=== PATIENT | female | born 1960 | race Two or more races ===

== ENCOUNTER 2024-08-30 14:25 | Emergency (ER) | payer MEDICAID, SELFPAY ==
[2024-08-30 14:26] VITALS: BMI 31.4
--- NOTE | 2024-08-30 15:00 | PD.EDBACK ---
ED Back Injury Pain RME/HPI General Chief Complaint: Back Pain/Injury Stated Complaint: LOWER BACK X3 DAYS Time Seen by Provider: 08/30/24 14:59 Arrival date/time: 08/30/24 14:25 RME / HPI RME / HPI Narrative: [email or web address]{vNSDO Related Data Allergies Allergy/AdvReac Type Severity Reaction Status Date / Time No Known Allergies Allergy Verified 08/30/24 14:26 Discharge Plan Patient/Caregiver Discharge Instructions Print Language: Libyan
[2024-08-30 15:01] VITALS: BP 172/82; PULSE 75; RESP 18; TEMP 37.2; O2SAT 95
--- NOTE | 2024-08-30 15:10 | XR_ITS ---
Examination: Lumbar spine 3 views TECHNIQUE: AP lateral, lateral lower lumbar spine 3 views Exam date and time: August 30, 2024 1541 hours INDICATIONS: Lower back pain beginning 3 days ago. FINDINGS: Moderate osteopenia Thoracolumbar dextroscoliosis 15 degrees Grade 1 anterolisthesis L4 on L5 No acute lumbar fracture Diffuse lumbar disc narrowing, advanced L5-S1 No spondylolisthesis IMPRESSION: Diffuse lumbar degenerative disc disease, advanced L5-S1
--- NOTE | 2024-08-30 15:10 | PD.EDBACK ---
ED Back Injury Pain RME/HPI General Chief Complaint: Back Pain/Injury Stated Complaint: LOWER BACK X3 DAYS Time Seen by Provider: 08/30/24 14:59 Source: patient Arrival date/time: 08/30/24 14:25 63-year-old female with no known medical history presents to the emergency room with a chief complaint of lower back pain x 3 days Mode of arrival: ambulatory Limitations: no limitations RME / HPI RME / HPI Narrative: [email or web address]{vNSDO Related Data Allergies Allergy/AdvReac Type Severity Reaction Status Date / Time No Known Allergies Allergy Verified 08/30/24 14:26 Review of Systems Review of Systems Systems Reviewed: All systems reviewed, normal except as documented Constitutional Constitutional: Reports system reviewed and no additional complaints, except as documented, Denies fatigue, Denies fever(s), Denies headache(s) and Denies weakness Eyes Eyes: Reports system reviewed and no additional complaints, except as documented, Denies blurry vision and Denies change in vision ENT Ears, Nose, Mouth, and Throat: Reports system reviewed and no additional complaints, except as documented, Denies otalgia, Denies headache(s), Denies nasal congestion, Denies throat swelling and Denies vertigo Cardiovascular Cardiovascular: Reports system reviewed and no additional complaints, except as documented, Denies chest pain, Denies dyspnea and Denies dyspnea on exertion Respiratory Respiratory: Reports system reviewed and no additional complaints, except as documented, Denies chest congestion, Denies cough, Denies dyspnea, Denies dyspnea on exertion and Denies wheezing Gastrointestinal Gastrointestinal: Reports system reviewed and no additional complaints, except as documented, Denies abdominal pain, Denies cramping, Denies nausea and Denies vomiting Genitourinary Genitourinary: Reports system reviewed and no additional complaints, except as documented Musculoskeletal Musculoskeletal: Reports system reviewed and no additional complaints, except as documented, Reports back pain and Reports radiating pain into limb Integumentary/Breasts Skin/Breast: Reports system reviewed and no additional complaints, except as documented and Denies wounds Neurologic Neurologic: Reports system reviewed and no additional complaints, except as documented, Denies confusion, Denies headache(s), Denies lack of coordination, Denies vertigo and Denies weakness Psychiatric Psychiatric: Reports system reviewed and no additional complaints, except as documented, Denies anxiety, Denies confusion, Denies depression, Denies paranoia, Denies suicidal ideation and Denies tactile hallucinations Endocrine Endocrine: Reports system reviewed and no additional complaints, except as documented and Denies fatigue Hematologic/Lymphatic Hematologic/Lymphatic: Reports system reviewed and no additional complaints, except as documented and Denies lymphadenopathy Allergic/Immunologic Allergic/Immunologic: Reports system reviewed and no additional complaints, except as documented, Denies throat swelling, Denies urticaria and Denies wheezing Past Medical History Social History SMOKING STATUS: Never smoker ED Exam General Limitations: Present no limitations General appearance: Present alert and in no apparent distress Head Head exam: Present atraumatic Eye Eye exam: Present normal appearance, PERRL and EOMI ENT ENT exam: Present normal exam, normal oropharynx and mucous membranes moist Neck Neck exam: Present normal inspection, full ROM and trachea midline Chest Chest inspection: Present normal inspection and symmetric chest wall rise Respiratory Respiratory exam: Present normal lung sounds bilaterally Cardiovascular Cardiovascular exam: Present regular rate, normal rhythm and normal heart sounds Abdominal Exam Abdominal exam: Present soft and normal bowel sounds Extremities Exam Extremities exam: Present normal inspection and full ROM Back Exam Back exam: Present normal inspection, full ROM, tenderness and sciatic notch tenderness (L) Neurological Exam Neurological exam: Present alert, oriented X3 and CN II-XII intact Psychiatric Psychiatric exam: Present normal affect and normal mood Skin Skin exam: Present warm, dry, intact and normal color Course Quality Measures none Orders Category Date Time Status XR lumbar spine 2-3V Stat Exams 08/30/24 15:10 Completed Ketorolac Inj [Toradol Inj] Med 08/30/24 15:10 Discontinued 30 mg IM X1 ONE Vital Signs Vital signs: Vital Signs Temperature 98.9 F 08/30/24 15:01 Pulse Rate 75 08/30/24 15:01 Respiratory Rate 18 08/30/24 15:01 Blood Pressure 172/82 H 08/30/24 15:01 Pulse Oximetry (%) 95 08/30/24 15:01 Oxygen Delivery Method Room Air 08/30/24 15:01 O2 saturation 95% within normal limits Back Pain / Injury MDM Narrative MDM Narrative:: 63-year-old female with no known medical history presents to the emergency room with a chief complaint of lower back pain x 3 days Patient is hemodynamically stable and in no apparent distress Physical examination shows tenderness and pain with palpation of the lumbar area of her spine. Patient also states she is having pain to the muscular left side of her buttocks that radiates down her left leg. The patient denies any numbness to the lower extremities. The patient is able to ambulate and has a normal steady gait. The patient denies any loss of bowel or bladder function or any saddle anesthesia. The findings are consistent with sciatica. X-ray of the lumbar spine was completed and showed degenerative disc disease. Patient was discharged and educated to follow-up with her primary care provider and return to the emergency room for any evidence of worsening signs or symptoms Patient data External records reviewed:: [facility] previous records Clinical information provided by:: patient Social determinants that could affect healthcare access:: none Patient has the following chronic illnesses:: Degenerative disc disease How is presenting disease/condition affected by chronic disease/condition?: exacerbated by Evaluation data The following diagnostics were reviewed and interpreted by me:: lab results and radiology exam(s) Lab and/or radiology exams considered but not ordered:: Labs and radiology exams considered and ordered Interpretation Summary: Lumbar spine [id number]: Moderate osteopenia Thoracolumbar dextroscoliosis 15 degrees Grade 1 anterolisthesis L4 on L5 No acute lumbar fracture Diffuse lumbar disc narrowing, advanced L5-S1 No spondylolisthesis IMPRESSION: Diffuse lumbar degenerative disc disease, advanced L5-S1 Medications / Prescriptions Medications or Prescriptions considered but not ordered:: Medication given Medication administrations:: Medication Administration History Discontinued Medications Ketorolac Tromethamine (Ketorolac Inj 60 Mg/2 Ml Vial) 30 mg IM X1 ONE Stop: 08/30/24 15:11 Last Admin: 08/30/24 15:15 Dose: 30 mg Documented By: Medication given Consultations Consultation(s) initiated? (list below): No Diagnosis Differential diagnosis back pain/injury: lumbar radiculopathy, sciatica, strain of lumbar region, discitis and other (Degenerative disc disease) Most likely diagnosis given after review of the tests above:: Degenerative disc disease/sciatica Admission Indicated Admission indicated?: not indicated Admission Request Was there a request for admission?: No Disposition Plan Disposition Plan: Discharge Discharge Attestation Discharge Attestation: The patient and all family members were given an opportunity to ask questions and understood the discharge instructions. Discharge instructions specifically effects, indications for sooner follow up or return to the emergency department, and the expected course of current diagnosis. Patient condition: Stable Discharge Plan Plan Patient Disposition: HOME (Self Care) Discharge Disposition comment: Stable Prescriptions/Referrals Referrals: Polo Ribera MD [Primary Care Provider] - In 1 week Problem List Clinical Impression: Degenerative disc disease Patient/Caregiver Discharge Instructions Additional Instructions: Por favor, consulte con hdez m?dico de cabecera en las pr?ximas 24 a 48 horas. Se realiz? moy radiograf?a de hdez columna lumbar y el resultado fue negativo para cualquier fractura o luxaci?n aguda. Si observa cualquier signo de empeoramiento de los signos o s?ntomas, acuda a urgencias de inmediato. Print Language: Burmese Stand Alone Forms: Sabina Award Info., Patient Portal Info Letter PA/TELEVISION NEWS REPORTER Supervising Physician PA/TELEVISION NEWS REPORTER Supervising Physician: Dr. Rodas
[2024-08-30] MEDS: KETOROLAC INJ 60 MG/2 ML VIAL 30 MG IM (15:15)
== END 2024-08-30 17:40 | disposition home or self-care (01) ==
PROVIDERS: Emergency Provider Family Medicine; PCP Family Medicine
DX: M51.360 Other intervertebral disc degeneration, lumbar region with discogenic back pain only (principal); M51.372 Other intervertebral disc degeneration, lumbosacral region with discogenic back pain and lower extremity pain; M43.16 Spondylolisthesis, lumbar region
CPT/HCPCS: 72100; 96372; 99283; J1885